=== PATIENT | male | born 1950 | race Caucasian/White ===

== ENCOUNTER 2021-10-04 03:39 | Outpatient (CLI) | payer MEDICARE, OTHER | END 2021-10-04 03:40 | disposition critical access hospital (66) | LOC: EMS 03:39 | DX: I46.9 Cardiac arrest, cause unspecified (principal) | CPT/HCPCS: A0425; A0433 ==

== ENCOUNTER 2021-10-04 04:01 | Emergency (ER) | payer MEDICARE, OTHER ==
[2021-10-04 04:36] LABS: VBG BASE EXCESS -11.4 mmol/L (-2 - +2); VBG HCO3 17.2 mmol/L (23-28); VBG PCO2 48.8 mmHg (41-51); VBG PH 7.166 (7.31-7.41); VBG PO2 203.1 mmHg (25-47); VBG TOTAL CO2 18.7 mmol/L (24-29)
[2021-10-04 04:37] LABS: BASOPHILS % (AUTO) 0.6 %; EOSINOPHILS % (AUTO) 1.2 %; HCT - HEMATOCRIT 43.4 % (42.0-52.0); HGB - HEMOGLOBIN 14.2 g/dL (14.0-18.0); LYMPHOCYTES % (AUTO) 29.2 %; MEAN CORPUSCULAR HEMOGLOBIN 32.8 pg (27.0-31.0); MEAN CORPUSCULAR HGB CONC 32.7 g/dL (32.0-36.0); MEAN CORPUSCULAR VOLUME 100.2 fL (80.0-94.0); MEAN PLATELET VOLUME 10.9 fL (7.4-11.4); MONOCYTES % (AUTO) 5.8 %; NEUTROPHILS % (AUTO) 57.3 %; PLT - PLATELET COUNT 188 10^3/uL (130-450); RED BLOOD COUNT 4.33 10^6/uL (4.70-6.10); RED CELL DISTRIBUTION WIDTH 12.2 % (12.0-15.0); WHITE BLOOD COUNT 12.2 x10^3/uL (4.8-10.8)
[2021-10-04 04:39] LABS: ABNORMAL LYMPHS % (MANUAL) 0 %; BAND NEUTROPHILS % (MANUAL) 0 %
[2021-10-04 04:49] LABS: MUDS CUTOFF CONCENTRATIONS CUTOFF CONC BELOW:
[2021-10-04] MEDS ORDERED: EPINEPHrine 1 MG/ML AMP ONE ×2 (04:50)
[2021-10-04 04:51] LABS: BILIRUBIN,URINE NEGATIVE (NEGATIVE); CLARITY,URINE CLEAR (CLEAR); GLUCOSE, URINE (UA) 250 mg/dL (NEGATIVE); KETONES,URINE (UA) NEGATIVE (NEGATIVE); LEUKOCYTE ESTERASE, URINE NEGATIVE (NEGATIVE); NITRITE,URINE NEGATIVE (NEGATIVE); OCCULT BLOOD,URINE SMALL (NEGATIVE); PROTEIN,URINE 100 mg/dL (NEGATIVE); UROBILINOGEN,URINE 0.2 (NORMAL) E.U./dL (NORMAL)
[2021-10-04 04:57] LABS: ALBUMIN/GLOBULIN RATIO 1.1 (1.0-2.2); BILIRUBIN,TOTAL 0.5 mg/dL (0.2-1.0); CALCIUM 11.7 mg/dL (8.5-10.3); CREATININE 1.2 mg/dL (0.6-1.2); POTASSIUM 2.8 mmol/L (3.5-5.0); TOTAL PROTEIN 5.8 g/dL (6.7-8.2)
[2021-10-04 05:00] LABS: BACTERIA,URINE Rare /HPF (None Seen); MUCUS,URINE Moderate Strands; RBC,URINE 0-5 /HPF (0-5); SQUAMOUS EPITHELIAL CELL,UR RARE Squamous (<= Few); WBC,URINE 0-3 /HPF (0-3)
[2021-10-04 05:01] LABS: AMPHETAMINE SCREEN,URINE NEGATIVE (NEGATIVE); BARBITURATE SCREEN,UR NEGATIVE (NEGATIVE); BENZODIAZEPINES SCREEN, URINE NEGATIVE (NEGATIVE); COCAINE SCREEN URINE NEGATIVE (NEGATIVE); METHADONE SCREEN, URINE NEGATIVE (NEGATIVE); METHAMPHETAMINES SCREEN, URINE NEGATIVE (NEGATIVE); OPIATE SCREEN, URINE POSITIVE (NEGATIVE); OXYCODONE SCREEN, URINE NEGATIVE (NEGATIVE); PROPOXYPHENE SCREEN, URINE NEGATIVE (NEGATIVE); THC CANNABINOID SCREEN, URINE NEGATIVE (NEGATIVE); TRICYCLIC ANTIDEPRESSANT,URINE NEGATIVE (NEGATIVE)
[2021-10-04 05:05] LABS: DIFFERENTIAL COMMENT MANUAL DIFFERENTIAL; EOSINOPHILS # (MANUAL) 0.4 10^3/uL (0-0.7); LYMPHOCYTES # (MANUAL) 3.5 10^3/uL (1.5-3.5); LYMPHOCYTES % (MANUAL) 29 %; NEUTROPHILS # (MANUAL) 7.3 10^3/uL (1.5-6.6); PLATELET ESTIMATE, MANUAL NORMAL (130-450,000) (NORMAL); PLATELET MORPHOLOGY NORMAL APPEARANCE (NORMAL); RBC MORPHOLOGY (MULTIPLE) NORMAL APPEARANCE (NORMAL); WBC MORPHOLOGY (MULTIPLE) NORMAL APPEARANCE (NORMAL)
[2021-10-04] MEDS ORDERED: POTASSIUM CHLOR 10 MEQ/100 ML 10 MEQ/100 ML BAG IV ONE ×2 (05:20→05:31)
[2021-10-04] MEDS ORDERED: VASOPRESSIN 20 UNIT/ML VIAL ONE (05:23)
[2021-10-04 05:28] LABS: ACETAMINOPHEN < 10 ug/mL (10-30); ETOH - ETHANOL < 5.0 mg/dL; SALICYLATE < 6.0 mg/dL
--- NOTE | 2021-10-04 05:34 | ED Physician Documentation ---
History of Present Illness - Stated complaint Stated Complaint: MD/CPR - Chief complaint Chief Complaint: Critical Care - History obtained from History obtained from: EMS - Additonal information Additional information: 71-year-old man with unknown past medical history was brought in by EMS in with CPR in progress. Patient called 911 stating "I think I'm having a stroke", found pulseless in asystole on arrival, with report of 45 min CPR on scene with one shock (vfib), one episode of rosc. patient initially had pulses on arrival to ED but lost pulse during handoff and CPR was initiated essentially upon arrival. See code sheet for details. Patient then had rosc, with ekg concerning for MD. Code STEMI called and he was transferred to [facility] via life flight. further history limited by patient acuity. Review of Systems Unable to obtain: Intubated PD PAST MEDICAL HISTORY - Allergies Allergies/Adverse Reactions: Allergies Allergy/AdvReac Type Severity Reaction Status Date / Time No Known Drug Allergies Allergy Verified 10/04/21 04:29 PD ED PE NORMAL - Vitals Vital signs reviewed: Yes - General General: Other (pulseless, cpr in progress) - HEENT HEENT: Atraumatic, Other (pupils sluggishly reactive. ett in place) - Neck Neck: Other (no bony deformity) - Cardiac Cardiac: Other (pulseless) - Respiratory Respiratory: Other (bilateral chest rise) - Abdomen Abdomen: Non tender, Non distended - Male Male : Other (normal ext male genitalia) - Back Back: Other (no spinal deformity) - Derm Derm: Other (pale and dry) - Extremities Extremities: No deformity - Neuro Neuro: Other (intubated, cpr in progress) - Psych Psych: Other (intubated, cpr in progress) Results - Vitals Vitals: Vital Signs - 24 hr 10/04/21 10/04/21 10/04/21 04:18 04:20 04:25 Heart Rate 156 H 163 H 144 H Respiratory 28 H 31 H 16 Rate Blood Pressure 211/150 H 200/141 H 149/99 H O2 Saturation 97 100 96 10/04/21 10/04/21 10/04/21 04:35 04:42 04:47 Heart Rate 146 H 138 H 163 H Respiratory 20 46 H 34 H Rate Blood Pressure 87/58 L 133/101 H 138/100 H O2 Saturation 98 81 L 99 10/04/21 10/04/21 10/04/21 04:50 05:00 05:05 Heart Rate 161 H 144 H 143 H Respiratory 34 H 20 21 Rate Blood Pressure 94/69 66/51 L 85/71 L O2 Saturation 98 97 88 L 10/04/21 10/04/21 05:08 05:13 Heart Rate 144 H 141 H Respiratory 17 Rate Blood Pressure 89/69 L O2 Saturation 87 L - EKG (time done) 0434 Rate: Rate (enter#) (137) Rhythm: Sinus tachycardia Ischemia: Other (diffuse STD with DYANA in AVR) - Labs Labs: Laboratory Tests 10/04/21 10/04/21 10/04/21 04:05 04:05 04:05 WBC 12.2 H RBC 4.33 L Hgb 14.2 Hct 43.4 MCV 100.2 H MCH 32.8 H MCHC 32.7 RDW 12.2 Plt Count 188 MPV 10.9 Neut # (Auto) Not Reportable Lymph # (Auto) Not Reportable [place] # (Auto) Not Reportable Eos # (Auto) Not Reportable Baso # (Auto) Not Reportable Absolute Nucleated RBC Not Reportable Total Counted 100 Band Neuts % (Manual) 0 Abnorm Lymph % (Manual) 0 Nucleated RBC % Not Reportable Neutrophils # (Manual) 7.3 H Lymphocytes # (Manual) 3.5 Monocytes # (Manual) 1.0 Eosinophils # (Manual) 0.4 Basophils # (Manual) 0.0 Differential Comment MANUAL DIFFERENTIAL WBC Morphology NORMAL APPEARANCE Platelet Estimate NORMAL (130-450,000) Platelet Morphology NORMAL APPEARANCE RBC Morph Micro Appear NORMAL APPEARANCE VBG pH 7.166 L VBG pCO2 48.8 VBG pO2 203.1 H VBG HCO3 17.2 L VBG Total CO2 18.7 L VBG O2 Saturation 99.0 H VBG Base Excess -11.4 L Sodium Potassium Chloride Carbon Dioxide Anion Gap BUN Creatinine Estimated GFR (MDRD) Glucose Calcium Total Bilirubin AST ALT Alkaline Phosphatase Troponin I High Sens 273.2 H* Total Protein Albumin Globulin Albumin/Globulin Ratio Lipase Urine Color Urine Clarity Urine pH Ur Specific [place] Urine Protein Urine Glucose (UA) Urine Ketones Urine Occult Blood Urine Nitrite Urine Bilirubin Urine Urobilinogen Ur Leukocyte Esterase Urine RBC Urine WBC Ur Squamous Epith Cells Urine Bacteria Urine Mucus Ur Microscopic Review Urine Culture Comments Nasal Adenovirus (PCR) Nasal B. parapertussis DNA (PCR) Nasal Coronavir 229E PCR Nasal Coronavir HKU1 PCR Nasal Coronavir NL63 PCR Nasal Coronavir OC43 PCR Nasal Enterovir/Rhinovir PCR Nasal Influenza B PCR Nasal Influenza A PCR Nasal Parainfluen 1 PCR Nasal Parainfluen 2 PCR Nasal Parainfluen 3 PCR Nasal Parainfluen 4 PCR Nasal RSV (PCR) Nasal B.pertussis DNA PCR Nasal C.pneumoniae (PCR) Rajiv Human Metapneumo PCR Nasal M.pneumoniae (PCR) Nasal SARS-CoV-2 (PCR) Salicylates Urine Opiates Screen Ur Oxycodone Screen Urine Methadone Screen Ur Propoxyphene Screen Acetaminophen Ur Barbiturates Screen Ur Tricyclics Screen Ur Phencyclidine Scrn Ur Amphetamine Screen U Methamphetamines Scrn U Benzodiazepines Scrn Urine Cocaine Screen U Cannabinoids Screen Ethyl Alcohol 10/04/21 10/04/21 10/04/21 04:30 04:30 04:40 WBC RBC Hgb Hct MCV MCH MCHC RDW Plt Count MPV Neut # (Auto) Lymph # (Auto) [place] # (Auto) Eos # (Auto) Baso # (Auto) Absolute Nucleated RBC Total Counted Band Neuts % (Manual) Abnorm Lymph % (Manual) Nucleated RBC % Neutrophils # (Manual) Lymphocytes # (Manual) Monocytes # (Manual) Eosinophils # (Manual) Basophils # (Manual) Differential Comment WBC Morphology Platelet Estimate Platelet Morphology RBC Morph Micro Appear VBG pH VBG pCO2 VBG pO2 VBG HCO3 VBG Total CO2 VBG O2 Saturation VBG Base Excess Sodium 145 Potassium 2.8 L Chloride 102 Carbon Dioxide 21 Anion Gap 22.0 H BUN 10 Creatinine 1.2 Estimated GFR (MDRD) 60 L Glucose 283 H Calcium 11.7 H Total Bilirubin 0.5 AST 556 H ALT 405 H Alkaline Phosphatase 100 Troponin I High Sens Total Protein 5.8 L Albumin 3.0 L Globulin 2.8 Albumin/Globulin Ratio 1.1 Lipase 61 H Urine Color Urine Clarity Urine pH Ur Specific [place] Urine Protein Urine Glucose (UA) Urine Ketones Urine Occult Blood Urine Nitrite Urine Bilirubin Urine Urobilinogen Ur Leukocyte Esterase Urine RBC Urine WBC Ur Squamous Epith Cells Urine Bacteria Urine Mucus Ur Microscopic Review Urine Culture Comments Nasal Adenovirus (PCR) Nasal B. parapertussis DNA (PCR) Nasal Coronavir 229E PCR Nasal Coronavir HKU1 PCR Nasal Coronavir NL63 PCR Nasal Coronavir OC43 PCR Nasal Enterovir/Rhinovir PCR Nasal Influenza B PCR Nasal Influenza A PCR Nasal Parainfluen 1 PCR Nasal Parainfluen 2 PCR Nasal Parainfluen 3 PCR Nasal Parainfluen 4 PCR Nasal RSV (PCR) Nasal B.pertussis DNA PCR Nasal C.pneumoniae (PCR) Rajiv Human Metapneumo PCR Nasal M.pneumoniae (PCR) Nasal SARS-CoV-2 (PCR) Salicylates < 6.0 Urine Opiates Screen Ur Oxycodone Screen Urine Methadone Screen Ur Propoxyphene Screen Acetaminophen < 10 L Ur Barbiturates Screen Ur Tricyclics Screen Ur Phencyclidine Scrn Ur Amphetamine Screen U Methamphetamines Scrn U Benzodiazepines Scrn Urine Cocaine Screen U Cannabinoids Screen Ethyl Alcohol < 5.0 < 5.0 10/04/21 10/04/21 04:40 05:10 WBC RBC Hgb Hct MCV MCH MCHC RDW Plt Count MPV Neut # (Auto) Lymph # (Auto) [place] # (Auto) Eos # (Auto) Baso # (Auto) Absolute Nucleated RBC Total Counted Band Neuts % (Manual) Abnorm Lymph % (Manual) Nucleated RBC % Neutrophils # (Manual) Lymphocytes # (Manual) Monocytes # (Manual) Eosinophils # (Manual) Basophils # (Manual) Differential Comment WBC Morphology Platelet Estimate Platelet Morphology RBC Morph Micro Appear VBG pH VBG pCO2 VBG pO2 VBG HCO3 VBG Total CO2 VBG O2 Saturation VBG Base Excess Sodium Potassium Chloride Carbon Dioxide Anion Gap BUN Creatinine Estimated GFR (MDRD) Glucose Calcium Total Bilirubin AST ALT Alkaline Phosphatase Troponin I High Sens Total Protein Albumin Globulin Albumin/Globulin Ratio Lipase Urine Color YELLOW Urine Clarity CLEAR Urine pH 8.0 H Ur Specific [place] 1.020 Urine Protein 100 H Urine Glucose (UA) 250 H Urine Ketones NEGATIVE Urine Occult Blood SMALL H Urine Nitrite NEGATIVE Urine Bilirubin NEGATIVE Urine Urobilinogen 0.2 (NORMAL) Ur Leukocyte Esterase NEGATIVE Urine RBC 0-5 Urine WBC 0-3 Ur Squamous Epith Cells RARE Squamous Urine Bacteria Rare Urine Mucus Moderate Strands Ur Microscopic Review INDICATED Urine Culture Comments NOT INDICATED Nasal Adenovirus (PCR) NOT DETECTED Nasal B. parapertussis DNA (PCR) NOT DETECTED Nasal Coronavir 229E PCR NOT DETECTED Nasal Coronavir HKU1 PCR NOT DETECTED Nasal Coronavir NL63 PCR NOT DETECTED Nasal Coronavir OC43 PCR NOT DETECTED Nasal Enterovir/Rhinovir PCR NOT DETECTED Nasal Influenza B PCR NOT DETECTED Nasal Influenza A PCR NOT DETECTED Nasal Parainfluen 1 PCR NOT DETECTED Nasal Parainfluen 2 PCR NOT DETECTED Nasal Parainfluen 3 PCR NOT DETECTED Nasal Parainfluen 4 PCR NOT DETECTED Nasal RSV (PCR) NOT DETECTED Nasal B.pertussis DNA PCR NOT DETECTED Nasal C.pneumoniae (PCR) NOT DETECTED Rajiv Human Metapneumo PCR NOT DETECTED Nasal M.pneumoniae (PCR) NOT DETECTED Nasal SARS-CoV-2 (PCR) NOT DETECTED Salicylates Urine Opiates Screen POSITIVE H Ur Oxycodone Screen NEGATIVE Urine Methadone Screen NEGATIVE Ur Propoxyphene Screen NEGATIVE Acetaminophen Ur Barbiturates Screen NEGATIVE Ur Tricyclics Screen NEGATIVE Ur Phencyclidine Scrn NEGATIVE Ur Amphetamine Screen NEGATIVE U Methamphetamines Scrn NEGATIVE U Benzodiazepines Scrn NEGATIVE Urine Cocaine Screen NEGATIVE U Cannabinoids Screen NEGATIVE Ethyl Alcohol PD MEDICAL DECISION MAKING - ED course ED course: Patient presented in cardiac arrest with limited information from the scene. no prior records here. Bedside POCUS showed no hemothorax, no pericardial effusion. No evidence of large PTX however post-ROSC cxr showed small apical pneumo. Troponin elevated and post ROSC ekg showed diffuse STD with DYANA in avR therefore code stemi was called and patient was transferred ed-ed in care of Dr. Ho Sal (ED accepting physician). Departure - Departure Disposition: 02 Transfer Acute Care Hosp Clinical Impression: Cardiac arrest, Hypokalemia, Acidosis, NSTEMI (non-ST elevated myocardial infarction), Elevated LFTs Condition: Serious
[2021-10-04 06:00] VITALS: BP 89/69
[2021-10-04 06:08] LABS: CORONAVIRUS 229E-RESP PCR NOT DETECTED; CORONAVIRUS HKU1-RESP PCR NOT DETECTED; CORONAVIRUS NL63-RESP PCR NOT DETECTED; CORONAVIRUS OC43-RESP PCR NOT DETECTED; HUMAN METAPNEUMOVIRUS NOT DETECTED; INFLUENZA A- RESP PCR PANEL NOT DETECTED; INFLUENZA B - RESP PCR PANEL NOT DETECTED; PARAINFLUENZA VIRUS 1 NOT DETECTED; PARAINFLUENZA VIRUS 2 NOT DETECTED; PARAINFLUENZA VIRUS 3 NOT DETECTED; PARAINFLUENZA VIRUS 4 NOT DETECTED; RHINOVIRUS/ENTEROVIRUS NOT DETECTED; RSV- RESP PCR PANEL NOT DETECTED; SARS-CoV-2 -RESP PCR PANEL NOT DETECTED
[2021-10-04 06:09] LABS: B. PARAPERTUSSIS- RESP PCR PAN NOT DETECTED; B. PERTUSSIS- RESP PCR PANEL NOT DETECTED; C. PNEUMONIAE- RESP PCR PANEL NOT DETECTED; M. PNEUMONIAE- RESP PCR PANEL NOT DETECTED
[2021-10-04] MEDS ORDERED: PANTOPRAZOLE 40 MG VIAL IVP SCH (07:00)
--- NOTE | 2021-10-04 07:58 | XRAY Report ---
PROCEDURE: Chest 1 View X-Ray INDICATIONS: Code TECHNIQUE: One view of the chest was acquired. COMPARISON: None FINDINGS: Endotracheal tube tip 5.3 cm above the devonte. Heart size and mediastinum unremarkable. There is a 20% right-sided pneumothorax present. Slightly di splaced right left third rib fracture noted. Subcutaneous air present in the chest wall, right greate r than left. No mediastinal shift present. Groundglass opacity noted throughout both lungs. IMPRESSION: Endotracheal tube tip in good position 5.3 cm above the devonte. Right-sided pneumothorax, approximately 20%. Left third rib fracture. Chest wall subcutaneous air noted in bilaterally, right greater than left Bilateral pulmonary edema and/or infection. Note: Final report is concordant with preliminary report provided by [employer] Reviewed by: Jacob Russ MD on 10/04/2021 6:56 AM [facility] Approved by: Jacob Russ MD on 10/04/2021 6:56 AM [facility] Station ID: [id number]
[2021-10-04] MEDS ORDERED: CHLORHEXIDINE GLUCONATE 15 ML UDC PO SCH (09:00)
== END 2021-10-04 05:32 | disposition short-term general hospital (02) ==
LOC: EDUNIT# → ED 04:01
DX: E87.6 Hypokalemia (principal); E87.2 Acidosis; I21.4 Non-ST elevation (NSTEMI) myocardial infarction; S27.0XXA Traumatic pneumothorax, initial encounter; R94.5 Abnormal results of liver function studies; Z20.822 Contact with and (suspected) exposure to COVID-19
CPT/HCPCS: 36415; 71045; 80053; 80306; 80307; 81001; 82803; 83690; 84484; 85025; 87631; 92950; 93005; 94002; 99285; 99291; G0390; G0480; 0202U; 80320; 80329; 81003; 87086; 94770